=== PATIENT | female | born 1960 | race Caucasian/White ===

== ENCOUNTER 2016-08-28 15:12 | Inpatient (IN) | payer MEDICAID ==
[2016-08-28] MEDS ORDERED: HYDROmorphone 0.5 MG/0.5 ML Syringe IVPUSH ONE (16:01)
--- NOTE | 2016-08-28 16:02 | EDM.PDOC ---
ED HPI GI/ABDOMINAL - General Chief Complaint: Abdominal Pain Stated Complaint: PAIN NOT AN ACCIDENT Time Seen by Provider: 08/28/16 15:45 Source: Reports: Patient History Limitations: Reports: No limitations - History of Present Illness INITIAL COMMENTS - FREE TEXT/NARRATIVE: 55-year-old female was developed abdominal pain over the past 12-16 hours. She feels bloated, nauseous but no vomiting. She did have a bowel movement this morning. No fevers or chills. No previous similar pain, no dysuria but does feel like she has increased urinary frequency. She has a history of appendicitis with surgery and cholecystectomy. Location: [facility] Quality: Reports: ache, fullness Severity: moderate Worsens with: Reports: other (Worsens with palpation or movement) - Related Data Allergies/ADRs: Allergies Allergy/AdvReac Type Severity Reaction Status Date / Time amoxicillin Allergy Cannot Verified 11/24/14 10:54 Remember aspirin Allergy Cannot Verified 11/24/14 10:54 Remember ibuprofen Allergy Cannot Verified 11/24/14 10:54 Remember morphine Allergy Cannot Verified 11/24/14 10:54 Remember prednisone Allergy Cannot Verified 11/24/14 10:54 Remember Sulfa (Sulfonamide Allergy Cannot Verified 11/24/14 10:54 Antibiotics) Remember Home Meds: Home Meds Acetaminophen [Mapap] 30 ml PO Q6H PRN 09/23/14 [History] Albuterol Sulfate 1 vial INH Q4H PRN 09/23/14 [History] Albuterol Sulfate [Proair Hfa] 2 puff INH Q4H PRN 09/23/14 [History] Amitriptyline [Elavil] 1 tab PO BEDTIME 09/23/14 [History] Cyclobenzaprine [Flexeril] 1 tab PO TID PRN 09/23/14 [History] Esomeprazole Magnesium [Nexium] 1 cap PO BID 09/23/14 [History] SUMAtriptan [Imitrex] 6 mg SQ ASDIRECTED PRN 09/23/14 [History] Citalopram Hydrobromide [Celexa] 1 tab PO DAILY 11/13/14 [History] atorvaSTATin [Lipitor] 1 tab PO BEDTIME 11/13/14 [History] guaiFENesin/Codeine Phosphate [Guaifenesin-Codeine Solution] 10 ml PO Q6H PRN [History] Past Medical History Other HEENT History: ear psoriasis Other Cardiovascular History: scheduled stress test next week 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: Other Endocrine/Metabolic History: "borderline diabetic" - Infectious Disease History Infectious Disease History: Reports: Chicken pox - Past Surgical History Other Cardiovascular Surgeries/Procedures: Stress test GI Surgical History: Reports: Appendectomy, Cholecystectomy Female Surgical History: Reports: section, Hysterectomy Social & Family History - Tobacco Use Smoking Status *Q: Current Every Day Smoker Years of Tobacco use: 40 Packs/Tins Daily: 1 - Caffeine Use Caffeine Use: Reports: Coffee - Alcohol Use Days Per Week of Alcohol Use: 1 Number of Drinks Per Day: 1 Total Drinks Per Week: 1 - Recreational Drug Use Recreational Drug Use: No Recreational Drug Type: Reports: Marijuana/Hashish ED ROS GENERAL - Review of Systems Review Of Systems: See Below Constitutional: Reports: chills, malaise. Denies: fever, weakness HEENT: Reports: No symptoms. Denies: Vision change Cardiovascular: Denies: Chest pain GI/Abdominal: Reports: Abdominal pain, Nausea. Denies: Diarrhea, Vomiting : Reports: urgency. Denies: discharge, dysuria, flank pain, frequency Skin: Reports: no symptoms Neurological: Reports: No Symptoms Psychiatric: Reports: No symptoms ED EXAM, GI/ABD - Physical Exam Exam: See Below Exam Limited By: No limitations General Appearance: alert, mild distress (Appears uncomfortable) Respiratory/Chest: no respiratory distress, lungs clear Cardiovascular: regular rate, rhythm GI/Abdominal: soft, tenderness, guarding (Patient has tenderness with guarding in the right lower quadrant, also some rebound tenderness) Extremities: normal inspection Neurological: alert, oriented Psychiatric: anxious Skin Exam: Warm, Dry Course - Vital Signs Last Recorded V/S: Last Vital Signs Temp 97.2 F 08/30/16 10:28 Pulse 76 08/30/16 10:28 Resp 18 08/30/16 10:28 BP 96/59 L 08/30/16 10:28 Pulse Ox 93 L 08/30/16 10:28 - Orders/Labs/Meds Labs: Laboratory Tests 08/28/16 08/28/16 08/28/16 Range/Units 16:01 16:09 16:09 WBC 14.6 H (4.5-11.0) K/uL RBC 4.85 (3.30-5.50) M/uL Hgb 14.9 (12.0-15.0) g/dL Hct 45.6 (36.0-48.0) % MCV 94 (80-98) fL MCH 31 (27-31) pg MCHC 33 (32-36) % Plt Count 341 (150-400) K/uL Neut % (Auto) 76 H (36-66) % Lymph % (Auto) 16 L (24-44) % [place] % (Auto) 6 (2-6) % Eos % (Auto) 1 L (2-4) % Baso % (Auto) 1 (0-1) % Sodium 142 (140-148) mmol/L Potassium 3.9 (3.6-5.2) mmol/L Chloride 103 (100-108) mmol/L Carbon Dioxide 31 (21-32) mmol/L Anion Gap 7.8 (5.0-14.0) mmol/L BUN 13 (7-18) mg/dL Creatinine 1.0 (0.6-1.0) mg/dL Est Cr Clr Drug Dosing 51.46 mL/min Estimated GFR (MDRD) 58 L (>60) Glucose 86 (74-106) mg/dL Calcium 9.2 (8.5-10.1) mg/dL Total Bilirubin 0.4 (0.2-1.0) mg/dL AST 22 (15-37) U/L ALT 48 (12-78) U/L Alkaline Phosphatase 70 (46-116) U/L Total Protein 8.0 (6.4-8.2) g/dL Albumin 3.9 (3.4-5.0) g/dL Globulin 4.1 H (2.3-3.5) g/dL Albumin/Globulin Ratio 1.0 L (1.2-2.2) Urine Color Yellow Urine Appearance Clear Urine pH 6.0 (4.5-8.0) Ur Specific [place] 1.015 (1.008-1.030) Urine Protein Negative (NEGATIVE) mg/dL Urine Glucose (UA) Normal (NEGATIVE) mg/dL Urine Ketones Negative (NEGATIVE) mg/dL Urine Occult Blood Negative (NEGATIVE) Urine Nitrite Negative (NEGATIVE) Urine Bilirubin Negative (NEGATIVE) Urine Urobilinogen Normal (NORMAL) mg/dL Ur Leukocyte Esterase Negative (NEGATIVE) Urine RBC Not seen (0-5) Urine WBC 0-5 (0-5) Ur Epithelial Cells Not seen Amorphous Sediment Not seen Urine Bacteria Not seen Urine Mucus Not seen Meds: Medications Discontinued Medications Generic Name Dose Route Start Last Admin Trade Name Freq PRN Reason Stop Dose Admin Acetaminophen 1,000 mg 08/28/16 18:57 08/28/16 19:03 Tylenol Extra Strength PO 08/28/16 18:58 1,000 mg ONETIME ONE Administration Acetaminophen 1,000 mg 08/28/16 21:03 Tylenol Extra Strength PO Q6H PRN FEVER Acetaminophen 650 mg 08/29/16 04:46 08/29/16 05:26 Tylenol RECTAL 08/29/16 04:47 650 mg NOW ONE Administration Hydrocodone Bitart/Acetaminophen 1 - 2 tab 08/30/16 07:50 08/30/16 12:48 [place] 325-5 Mg PO 2 tab Q4H PRN Administration Pain Albuterol 0 gm 08/28/16 21:07 Ventolin Hfa INH Q2H PRN Shortness of Breath Bupivacaine HCl/Epinephrine Bitart Confirm 08/29/16 12:38 08/29/16 16:44 Marcaine 0.5%/Epinephrine 1:200,000 Administered 08/29/16 12:39 50 ml Dose Administration 50 ml .ROUTE .STK-MED ONE Dexamethasone Confirm 08/29/16 15:36 Dexamethasone Administered 08/29/16 15:37 Dose 4 mg .ROUTE .STK-MED ONE Fentanyl Confirm 08/29/16 15:36 Sublimaze Administered 08/29/16 15:37 Dose 500 mcg .ROUTE .STK-MED ONE Fentanyl 10 - 40 mcg 08/29/16 18:22 08/29/16 18:34 Sublimaze IVPUSH 10 mcg Q1H PRN Administration Pain (severe 7-10) Glycopyrrolate Confirm 08/29/16 15:37 Administered 08/29/16 15:38 Dose 1 mg .ROUTE .STK-MED ONE Hydromorphone HCl 0.5 mg 08/28/16 16:01 08/28/16 16:22 Dilaudid IVPUSH 08/28/16 16:02 0.5 mg ONETIME ONE Administration Hydromorphone HCl 0 mg 08/28/16 21:09 08/28/16 22:27 Dilaudid Tallow Refiner 15 Mg In Ns 30 Ml IV 15 mg ASDIRECTED PRN Administration COMPUTER [employer]IST PAIN CONTROL Protocol Hydroxyzine HCl 100 mg 08/29/16 18:22 08/29/16 18:37 Vistaril IM 08/29/16 18:23 100 mg ONETIME ONE Administration Hydroxyzine HCl Confirm 08/29/16 18:39 08/29/16 19:07 Vistaril Administered 08/29/16 18:40 Not Given Dose 50 mg .ROUTE .STK-MED ONE Sodium Chloride 1,000 mls @ 500 mls/hr 08/28/16 16:15 08/28/16 16:24 Normal Saline IV 500 mls/hr ASDIRECTED MIGUEL A Administration Sodium Chloride 80 mls @ 3 mls/sec 08/28/16 17:00 Normal Saline IV ASDIRECTED MIGUEL A Levofloxacin/Dextrose 750 mg/ 150 mls @ 100 mls/hr 08/28/16 17:55 08/28/16 18 :07 Premix IV 08/28/16 19:24 100 mls/hr ONETIME ONE Administration Cefoxitin Sodium 2 gm/ Sodium 50 mls @ 100 mls/hr 08/28/16 18:32 08/28/16 19: 30 Chloride IV 08/28/16 19:01 100 mls/hr ONETIME ONE Administration Dextrose/Lactated Ringer's 1,000 mls @ 150 mls/hr 08/28/16 21:15 08/29/16 04: 28 Dextrose 5%-Lactated Ringers IV 150 mls/hr ASDIRECTED MIGUEL A Administration Cefoxitin Sodium 2 gm/ Sodium 50 mls @ 100 mls/hr 08/29/16 01:00 08/29/16 02: 09 Chloride IV 100 mls/hr Q6H MIGUEL A Administration Cefoxitin Sodium 2 gm/ Sodium 50 mls @ 100 mls/hr 08/29/16 08:00 08/30/16 07: 32 Chloride IV 100 mls/hr Q6H MIGUEL A Administration Lactated Ringer's Confirm 08/29/16 16:22 Ringers, Lactated Administered 08/29/16 16:23 Dose 1,000 mls @ as directed .ROUTE .STK-MED ONE Sodium Chloride 1,000 mls @ 125 mls/hr 08/29/16 18:45 08/30/16 07:15 Normal Saline IV 125 mls/hr ASDIRECTED MIGUEL A Administration Iopamidol 117 ml 08/28/16 17:00 08/28/16 17:05 Isovue-300 (61%) IV 117 ml . DIRECTED MIGUEL A Administration Naloxone HCl 0.1 mg 08/28/16 21:09 Narcan IV ASDIRECTED PRN decreased respiratory rate Neostigmine Methylsulfate Confirm 08/29/16 15:37 Neostigmine Administered 08/29/16 15:38 Dose 5 mg .ROUTE .STK-MED ONE Ondansetron HCl 4 mg 08/29/16 05:48 08/29/16 14:03 Zofran IVPUSH 4 mg Q4H PRN Administration Nausea/Vomiting Ondansetron HCl Confirm 08/29/16 15:36 Zofran Administered 08/29/16 15:37 Dose 4 mg .ROUTE .STK-MED ONE Propofol Confirm 08/29/16 15:36 Diprivan 20 Ml Administered 08/29/16 15:37 Dose 200 mg .ROUTE .STK-MED ONE Rocuronium [place] Confirm 08/29/16 15:36 Zemuron Administered 08/29/16 15:37 Dose 50 mg .ROUTE .STK-MED ONE Scopolamine Confirm 08/29/16 16:27 Transderm-Scop Administered 08/29/16 16:28 Dose 1.5 mg .ROUTE .STK-MED ONE Sodium Chloride 10 ml 08/28/16 16:55 08/29/16 09:59 Saline Flush FLUSH 10 ml ASDIRECTED PRN Administration Keep Vein Open Succinylcholine Chloride Confirm 08/29/16 15:36 Succinylcholine In Ns Pf Administered 08/29/16 15:37 Dose 200 mg .ROUTE .STK-MED ONE - Re-Assessments/Exams Free Text/Narrative Re-Assessment/Exam: 08/28/16 18:41 An IV was started and the patient was given 0.5 mg of Dilaudid IV. This gave her good pain relief initially. A CBC revealed a white blood cell count of 14, 000, the rest of her labs were reassuring. UA was negative, normal. This was followed with a CT scan with IV contrast and revealed a stump appendicitis with colonic stranding and inflammation. She was then given 750 mg of Levaquin IV which will be followed by Mefoxin 2 g every 6 hours. She'll be allowed to eat until midnight and she'll be admitted to Dr. Gaming's service. Departure - Departure Time of Disposition: 20:06 Disposition: Admitted As Inpatient 68 Condition: fair Clinical Impression: Appendicitis Qualifiers: Appendicitis type: acute appendicitis Acute appendicitis type: with localized peritonitis Qualified Code(s): K35.3 - Acute appendicitis with localized peritonitis
[2016-08-28] MEDS ORDERED: Sodium Chloride 0.9% 1,000 ML IV SCH (16:15)
[2016-08-28] MEDS ORDERED: Sodium Chloride 0.9% 80 ML IV SCH (17:00)
[2016-08-28] MEDS ORDERED: Iopamidol 612 MG/ML 150 ML Bottle IV SCH (17:00)
[2016-08-28] MEDS: Sodium Chloride 0.9% 10 ML Syringe FLUSH PRN (17:05)
[2016-08-28] MEDS ORDERED: Levofloxacin/Dextrose 5%-Water 750 MG in Premix Bag 1 BAG IV ONE (17:55)
[2016-08-28] MEDS ORDERED: cefOXitin 2 GM in Sodium Chloride 0.9% 50 ML IV ONE (18:32)
[2016-08-28] MEDS ORDERED: Acetaminophen 500 MG Tab PO ONE (18:57)
[2016-08-28] MEDS ORDERED: Acetaminophen 500 MG Tab PO PRN (21:03)
[2016-08-28] MEDS ORDERED: Albuterol 8 GM Inhaler INH PRN (21:07)
[2016-08-28] MEDS ORDERED: Naloxone 0.4 MG/ML SDV IV PRN (21:09)
[2016-08-28] MEDS ORDERED: HYDROmorphone/Normal Saline 15 MG/30 ML PCA IV PRN (21:09)
[2016-08-28] MEDS: Dextrose 5%-Lactated Ringers 1,000 ML IV SCH (22:25)
[2016-08-29] MEDS ORDERED: cefOXitin 2 GM in Sodium Chloride 0.9% 50 ML IV SCH (01:00)
[2016-08-29] MEDS: Dextrose 5%-Lactated Ringers 1,000 ML IV SCH (04:28)
[2016-08-29] MEDS ORDERED: Acetaminophen 650 MG Supp RECTAL ONE (04:46)
[2016-08-29] MEDS: Ondansetron 4 MG/2 ML SDV IVPUSH PRN ×3 (05:55→14:03)
[2016-08-29] MEDS: cefOXitin 2 GM in Sodium Chloride 0.9% 50 ML IV SCH ×3 (09:58→19:42)
[2016-08-29] MEDS: Sodium Chloride 0.9% 10 ML Syringe FLUSH PRN (09:59)
[2016-08-29] MEDS ORDERED: Bupivacaine 0.5%/EPINEPHrine 1:200,000 50 ML MDV ONE (12:38)
[2016-08-29] MEDS ORDERED: Rocuronium 50 MG/5 ML Vial ONE (15:36)
[2016-08-29] MEDS ORDERED: Ondansetron 4 MG/2 ML SDV ONE (15:36)
[2016-08-29] MEDS ORDERED: Dexamethasone 4 MG/ML SDV ONE (15:36)
[2016-08-29] MEDS ORDERED: Succinylcholine/Normal Saline 200 MG/10 ML Syringe ONE (15:36)
[2016-08-29] MEDS ORDERED: fentaNYL 250 MCG/5 ML SDV ONE (15:36)
[2016-08-29] MEDS ORDERED: Propofol 200 MG/20 ML SDV ONE (15:36)
[2016-08-29] MEDS ORDERED: Neostigmine Methylsulfate 1 MG/ML 5 ML Syringe ONE (15:37)
[2016-08-29] MEDS ORDERED: Lactated Ringers 1,000 ML ONE (16:22)
[2016-08-29] MEDS ORDERED: Scopolamine 1.5 MG Transdermal Patch ONE (16:27)
[2016-08-29] MEDS ORDERED: Sugammadex Sodium 200 MG/2 ML VIAL ONE (17:29)
[2016-08-29] MEDS ORDERED: hydrOXYzine HCl 50 MG/ML SDV IM ONE (18:22)
[2016-08-29] MEDS ORDERED: fentaNYL 100 MCG/2 ML SDV IVPUSH PRN (18:22)
[2016-08-29] MEDS ORDERED: hydrOXYzine HCl 50 MG/ML SDV ONE (18:39)
[2016-08-29] MEDS: Sodium Chloride 0.9% 1,000 ML IV SCH (20:57)
--- NOTE | 2016-08-29 23:08 | CONS ---
DATE OF SERVICE: 08/29/2016 REFERRING PHYSICIAN: CONSULTING PHYSICIAN: Forest Rhodes MD REASON FOR CONSULTATION: Right lower quadrant abdominal pain. HISTORY OF PRESENT ILLNESS: A 55-year-old female, who is known to have right lower quadrant abdominal pain over the last 14 hours. The patient is having bowel movements. No fevers or chills. She does also have increased urinary frequency. PAST MEDICAL HISTORY: Cholecystitis, appendicitis. PAST SURGICAL HISTORY: Appendectomy, cholecystectomy, hysterectomy, section. SOCIAL HISTORY: She is a current smoker. FAMILY HISTORY: Noncontributory. REVIEW OF SYSTEMS: GENERAL: The patient is doing quite well. She has minimal pain. HEENT: No symptoms. CARDIOVASCULAR: No chest pain. RESPIRATORY: No shortness of breath. GASTROINTESTINAL: Having bowel movements. No significant abnormalities. GENITOURINARY: Urgency. NEUROLOGIC: No symptoms. PSYCH: No symptoms. The remainder of the systems were reviewed and negative. PHYSICAL EXAMINATION: GENERAL: The patient is appropriate for condition, actually looks quite comfortable. VITAL SIGNS: Temperature 98.4, blood pressure 124/55, pulse 92, respirations 18, 95% on 2 L. HEENT: Pupils equal, round, and reactive to light. NECK: Supple, nontender. CARDIOVASCULAR: Regular rhythm and rate. RESPIRATORY: Lungs are clear to consultation bilaterally. ABDOMEN: Bowel sounds are positive. Mild pain with palpation to right lower quadrant. No rebound. No guarding. EXTREMITIES: Full range of motion. NEUROLOGICAL: Alert and oriented x3. PSYCH: No gross depression. LABORATORY RESULTS: Show a white blood cell count including CBC which is essentially normal along with an essentially normal basic metabolic panel. IMAGING: We did review the CT scan, which suggests a stump appendicitis. ASSESSMENT: Possible stump appendicitis. PLAN: I did discuss with the patient that this is a rare event and the literature is rather vague due to its paucity of symptoms and cases. Therefore, the plan will be diagnostic laparoscopy to evaluate the current status of this condition. Discussed risks, benefits, alternatives, and limitations, including, but not limited to infection, bleeding, fistula formation, requirement for open surgery, injury to bowel, bladder, ureters, and other abdominal structures. We also discussed the alternatives, which is observation which is very reasonable. However, there is a high percentage of perforation and fistula noted in the literature, therefore this would be a concern and recommended diagnostic laparoscopy. The patient's family understands these risks and wishes to proceed. Forest Rhodes MD /[id number]
[2016-08-30] MEDS: cefOXitin 2 GM in Sodium Chloride 0.9% 50 ML IV SCH ×2 (02:06→07:32)
[2016-08-30] MEDS: Sodium Chloride 0.9% 1,000 ML IV SCH (07:15)
--- NOTE | 2016-08-30 07:24 | OR ---
DATE OF PROCEDURE: 08/29/2016 PROCEDURE PERFORMED: 1. Diagnostic laparoscopy. 2. Lysis of adhesions. 3. Intraabdominal abscess drainage. INDICATIONS: A 55-year-old female, who came with right lower quadrant abdominal pain. There was concern for possible stump appendicitis versus abdominal abscess. Risks, benefits, alternatives, limitations including but not limited to infection, bleeding, distal inflammation, perforation of abdominal structures, requirement for open or revision of surgery were explained to the patient and wished to proceed. FINDINGS: 1. No evidence of recurrent stump appendicitis. 2. Abscess pocket right abdomen. 3. Dense adhesions requiring lysis of adhesions. ANESTHESIA: General/local. PROCEDURE IN DETAIL: The patient was placed in supine position. A supraumbilical incision was made to avoid the intraabdominal adhesions. A Veress needle was used to enter the abdomen without abnormality. A drop test was performed without abnormality. The abdomen with subsequent staging was followed by an Optiview trocar. This did not show any evidence of perforation or enterotomy. Then, two 5 mm ports were entered under direct visualization. After the two 5 mm ports were entered, the patient had dense adhesions in the right lower quadrant. Lysis of adhesions was then subsequently performed. This was noted to be dense type 2, type 3 adhesions consistent with enhanced vascularity. The cecum was then identified and was evaluated. There was noted to be no stump appendicitis in this area. However, the right lower quadrant away from the cecum, there was an abscess noted. This was opened, cultured, and subsequently drained. There was a moderate amount of bleeding associated with lysis of adhesions and irrigation of the right lower quadrant. This was controlled with minimal electrocautery and surgical clips were used to control any large vascular structures (1-2 mm large vascular structures). This was then thoroughly irrigated. A 10 flat Bubba-Winters drain was placed in the right lower quadrant. Of note, during this procedure, the right upper 5 mm port was enlarged to a 10 mm port to facilitate movement of the camera position. After irrigation was complete, the ports were removed, the air was removed. The wounds were closed with 3-0 Vicryl and 4-0 Prolene interrupted running fashion. The drain was stitched and the patient tolerated the procedure well. Forest Rhodes MD /[id number]
[2016-08-30] MEDS: Acetaminophen/HYDROcodone 325-5 MG Tab PO PRN ×2 (08:31→12:48)
[2016-08-30 10:29] VITALS: BP 96/59
--- NOTE | 2016-09-05 14:52 | DISCH ---
DATE OF SERVICE: 09/05/2016 DISCHARGE DIAGNOSES: Status post lysis of adhesions and drainage of intraabdominal max abscess. HISTORY OF PRESENT ILLNESS: This is a 55-year-old female, who was admitted with right lower quadrant abdominal pain and there was concern for stump appendicitis versus abdominal abscess. On 08/29/2016, the patient was taken to the operating room and underwent diagnostic laparoscopy. She was noted to have an abscess which was subsequently drained. The patient was noted to have Streptococcus viridans from the culture. She is treated on antibiotics. Prior to discharge, she was having bowel movements. Her pain is well controlled. No nausea, vomiting, shortness of breath, or chest pain. She is tolerating diet without any difficulty and was ambulating without difficulty. Her wounds are healing well. FOLLOWUP: Follow up with surgery in 7 to 14 days. DIET: Diet as tolerated. ACTIVITY: No lifting greater than 30 pounds since 30 days. Forest Rhodes MD /[id number]
== END 2016-08-30 13:30 | disposition home or self-care (01) | DRG 337 ==
LOC: JP.ED 15:12 → JP.MS 19:20 → JP.SDSSCHI 08-30 11:29 → JP.MS 08-30 11:39
PROVIDERS: ADMIT Surgery; ATTEND Surgery
PROC: 0DNW4ZZ Release Peritoneum, Percutaneous Endoscopic Approach (ICD-10-PCS; principal; 2016-08-29)
PROC: 0W9G4ZX Drainage of Peritoneal Cavity, Percutaneous Endoscopic Approach, Diagnostic (ICD-10-PCS; principal; 2016-08-29)
DX: K65.1 Peritoneal abscess (principal); B95.4 Other streptococcus as the cause of diseases classified elsewhere; K66.0 Peritoneal adhesions (postprocedural) (postinfection); Z88.6 Allergy status to analgesic agent; Z88.1 Allergy status to other antibiotic agents; Z88.5 Allergy status to narcotic agent; Z88.2 Allergy status to sulfonamides; Z88.8 Allergy status to other drugs, medicaments and biological substances
CPT/HCPCS: 36415; 74177; 80053; 81001; 85025; 85027; 87070; 87075; 87077; 87205; 94762; 96361; 96365; 96368; 96375; 99285-25; A9270-GY; J0694; J1100; J1170; J1956; J2405; J2704; J3010; J3410; J7040; J7042; J7050; J7120

== ENCOUNTER → 2018-09-04 | Outpatient (CLI) | payer MEDICAID ==
--- NOTE | 2018-09-04 14:29 | CT ---
Pelvis wo Cont CLINICAL HISTORY: Pelvic pain COMPARISON: December 14, 2016 TECHNIQUE: Multiple contiguous axial sections were obtained from the level of the iliac crests down to the pubic symphysis without IV contrast enhancement. Oral contrast was not administered. Auto dosage reduction and iterative reconstruction techniques employed. FINDINGS: Pelvic fat planes and low pelvic side reynolds are well demarcated. There is a surgical clip near the cecum. The appendix is not identified. The small intestinal configuration is normal. No inguinal hernia or adenopathy is seen. Bladder has normal contour. No adnexal mass is seen. There is a 7 mm calcification in the right the mid pelvic region. This is unchanged from the December 14, 2016 study.. There are scattered phleboliths. IMPRESSION: No mass, adenopathy or inflammatory change
== END ==
LOC: JP.CT 13:31
PROVIDERS: ATTEND Family Medicine
DX: R10.2 Pelvic and perineal pain (principal)
CPT/HCPCS: 72192; 72192-26